=== PATIENT | male | born 1985 | race Hispanic/Latino ===

== ENCOUNTER 2018-01-18 08:48 | Day surgery (SDC) | payer BC ==
--- NOTE | 2018-01-18 09:08 | RAD REPORT ---
EXAM DESCRIPTION: RAD - Abdomen 1 View ([facility]) - 01/18/2018 8:47 am CLINICAL HISTORY: preop<Reason For Exam>preop COMPARISON: Abdomen 1 View ([facility]) dated 01/13/2018<Comparisons> FINDINGS: The rounded or oval calcifications superimposed on the inferior left sacral ala on the Dec ust examination does not have the same appearance currently. There is a focal density here that is probably part of the sacrum and not a ureteral calculus. Elsewhere along the expected course of the ureter there is no evidence for antegrade or retrograde mo vement of the suspected pelvic inlet calculus. No bladder calculus seen. IMPRESSION: The suspected distal ureteral calculus near the pelvic inlet detailed January 13 is no longer seen at that location. No evidence for antegrade or retrograde movement of the stone.
[2018-01-18] MEDS ORDERED: NA CHLORIDE 0.9% 1,000 ML ONE ×2 (09:32→11:18)
[2018-01-18] MEDS ORDERED: GENTAMICIN 100 MG/100 ML BAG 100 MG/100 ML BAG IV ONE (09:32)
[2018-01-18] MEDS ORDERED: PROPOFOL 200 MG/20 ML VIAL IV ONE (10:11)
[2018-01-18] MEDS ORDERED: MIDAZOLAM HCL 2 MG/2 ML INJ ONE (10:11)
[2018-01-18] MEDS ORDERED: FENTANYL CITR 250 MCG/5 ML ONE (10:11)
[2018-01-18] MEDS ORDERED: Phenylephrine HCl 10 MG/ML 1 ML VIAL ONE (11:06)
[2018-01-18] MEDS ORDERED: Mastisol Adhesive Liq ONE (11:23)
[2018-01-18] MEDS ORDERED: KETOROLAC 30 MG/ML INJ ONE (11:27)
--- NOTE | 2018-01-18 11:39 | RAD REPORT ---
EXAM DESCRIPTION: RAD - Urography Retrograde - 01/18/2018 11:33 am CLINICAL HISTORY: STENT PLACEMENT COMPARISON: No comparisons FINDINGS: Fluoroscopic imaging of the abdomen was submitted as part of a stent placement procedure. Details of the procedure not available. Total fluoro time: 1 minutes 38 seconds.
[2018-01-18] MEDS ORDERED: TRAMADOL HCL 50 MG TAB ONE (13:22)
== END 2018-01-18 14:25 | disposition home or self-care (01) ==
LOC: OR 08:48
PROVIDERS: ATTEND Urology
PROC: 0T778DZ Dilation of Left Ureter with Intraluminal Device, Via Natural or Artificial Opening Endoscopic (ICD-10-PCS; 2018-01-18)
PROC: 0TC78ZZ Extirpation of Matter from Left Ureter, Via Natural or Artificial Opening Endoscopic (ICD-10-PCS; 2018-01-18)
PROC: BT1FYZZ Fluoroscopy of Left Kidney, Ureter and Bladder using Other Contrast (ICD-10-PCS; 2018-01-18)
PROC: 0TF78ZZ Fragmentation in Left Ureter, Via Natural or Artificial Opening Endoscopic (ICD-10-PCS; principal; 2018-01-18 11:00)
DX: N20.1 Calculus of ureter (principal); E11.9 Type 2 diabetes mellitus without complications; I10 Essential (primary) hypertension; Z79.84 Long term (current) use of oral hypoglycemic drugs; Z87.442 Personal history of urinary calculi; Z88.0 Allergy status to penicillin
CPT/HCPCS: 74018; 74420; 82360; 82962; J1580; J2250; J2370; J7030; Q9967